=== PATIENT | female | born 1945 | race Caucasian/White ===

== ENCOUNTER → 2018-01-06 12:03 | Outpatient (CLI) | payer MEDICARE, OTHER | END | disposition home or self-care (01) | LOC: D.CT 01-05 13:30 | DX: C17.0 Malignant neoplasm of duodenum (principal) ==

== ENCOUNTER → 2018-01-25 14:58 | Outpatient (CLI) | payer MEDICARE, OTHER ==
[2018-01-25 16:48] LABS: T4 THYROXIN - FREE 1.06 ng/dL (0.76-1.46); THYROID STIMULATING HORMONE 1.51 uIU/mL (0.36-3.74)
[2018-01-27 14:23] LABS: CHROMOGRANIN A 7 nmol/L (0-5)
[2018-01-29 10:18] LABS: SEROTONIN 270 ng/mL (0-420)
== END | disposition home or self-care (01) ==
LOC: D.LAB 14:58
PROVIDERS: Nurse Practitioner Family
DX: D3A.00 Benign carcinoid tumor of unspecified site (principal)